=== PATIENT | male | born 1985 | race African-American/Black ===

== ENCOUNTER 2017-06-05 07:31 | Outpatient (CLI) | payer OTHER ==
[2017-06-05] VITALS (7 sets, daily range): BP systolic 108–121; BP diastolic 69–86; PULSE 57–64; TEMP 97.8
[~2017-06-05] VITALS: Ht 175.3 cm; Wt 92.8 kg
[2017-06-05] MEDS ORDERED: SINGULAIR 110 MG/TAB PO (07:42)
[2017-06-05] MEDS ORDERED: ZYRTEC ALLERGY10 MG PO (07:43)
[2017-06-05 10:13] LABS: CEREBROSPINAL TUBE #4; CSF APPEARANCE CLEAR; CSF COLOR COLORLESS
[2017-06-07 13:37] LABS: ALBUMIN CSF 10.6 mg/dL (<=27.0); CSF IGG/ALBUMIN 0.15 (<=0.21); CSF,IGG 1.6 mg/dL (<=8.1)
[2017-06-07 14:31] LABS: CSF-IGG INDEX 0.48 (<=0.85); IGG/ALBUMIN SERUM 0.31 (<=0.40)
== END 2017-06-05 10:53 | disposition home or self-care (01) ==
LOC: COL.RAD 07:31
PROVIDERS: Psychiatry & Neurology Neurology
DX: R20.0 Anesthesia of skin (principal)